=== PATIENT | female | born 1960 | race Caucasian/White ===

== ENCOUNTER 2016-07-18 18:35 | Emergency (ER) | payer OTHER ==
[~2016-07-18 18:35] MED LIST: ASAB PO; BEN25 PO; TYLOX1 CAP PO; ZYRTEC ALLGY10 MG PO
== END 2016-07-18 18:45 | disposition home or self-care (01) ==
LOC: ER 18:35
DX: M54.2 Cervicalgia (principal); Z88.8 Allergy status to other drugs, medicaments and biological substances; V89.2XXA Person injured in unspecified motor-vehicle accident, traffic, initial encounter
CPT/HCPCS: 72040; 96372; 99283; A9270-GY; J2800